=== PATIENT | female | born 2000 | race Caucasian/White ===

== ENCOUNTER 2018-06-28 19:29 | Observation (INO) | payer OTHER ==
[~2018-06-28] VITALS: Ht 167.6 cm; Wt 80.2 kg
--- NOTE | 2018-06-28 21:15 | ERD ---
ER Documentation Chief Complaint Chief Complaint C/O VAGINAL DISCHARGE X1 WEEK, 16 WEKS PREG, HX OF LABOR AT 18WEEKS HPI History of Present Illness: 18-year-old female with history of PCO S coming in today with complaint of vaginal discharge for 1 week. Patient describes discharge as watery without odor. Patient reports being approximately 16 weeks and a patient of Dr. Mccormick. Reports history of labor at 18 weeks and according to an ultrasound that was done today her cervix is open. At home pharmacological/nonpharmacological treatment for symptoms: --- Denies social concerns; Denies recent foreign travel ROS All systems reviewed and are negative except as per history of present illness. Medications Home Meds No Active Prescriptions or Reported Meds Allergies Allergies: Coded Allergies: Penicillins (Verified Allergy, Unknown, 06/28/18) PMhx/Soc History of Surgery: Yes (TA) Hx Miscellaneous Medical Probl: Yes (PCOS) Hx Alcohol Use: No Hx Substance Use: No Hx Tobacco Use: No Smoking Status: Never smoker FmHx Family History: diabetes; No coronary disease Physical Exam Vitals Vital Signs Date Temp Pulse Resp B/P (MAP) Pulse Ox O2 O2 Flow FiO2 Time Delivery Rate 06/28/18 98.1 97 20 130/71 100 Room Air 23:36 (90) 06/28/18 98.3 90 19 142/71 99 19:41 (94) Physical Exam Const: No acute distress Head: Atraumatic Eyes: Normal Conjunctiva ENT: Normal External Ears, Nose and Mouth. Neck: Full range of motion. No meningismus. Resp: Clear to auscultation bilaterally Cardio: Regular rate and rhythm, no murmurs Abd: Soft, non tender, non distended. Palpable fundus, normal bowel sounds. Skin: No petechiae or rashes Back: No midline or flank tenderness Ext: No cyanosis, or edema Neur: Awake and alert Psych: Normal Mood and Affect Result Diagram: 06/28/182140 Results 24 hrs Laboratory Tests Test 06/28/18 21:02 06/28/18 21:41 Urine Color YELLOW Urine Clarity CLEAR Urine pH 6.0 Urine Specific [place] 1.014 Urine Ketones NEGATIVE mg/dL Urine Nitrite NEGATIVE mg/dL Urine Bilirubin NEGATIVE mg/dL Urine Urobilinogen NEGATIVE mg/dL Urine Leukocyte Esterase NEGATIVE Annamarie/ul Urine Hemoglobin NEGATIVE mg/dL Urine Glucose 1+ mg/dL Urine Total Protein NEGATIVE mg/dl White Blood Count 9.2 10^3/ul Red Blood Count 4.02 10^6/ul Hemoglobin 11.9 g/dl Hematocrit 36.2 % Mean Corpuscular Volume 90.0 fl Mean Corpuscular Hemoglobin 29.6 pg Mean Corpuscular Hemoglobin Concent 32.9 g/dl Red Cell Distribution Width 12.8 % Platelet Count 257 10^3/UL Mean Platelet Volume 10.9 fl Immature Granulocytes % 0.400 % Neutrophils % 65.8 % Lymphocytes % 24.7 % Monocytes % 7.2 % Eosinophils % 1.6 % Basophils % 0.3 % Nucleated Red Blood Cells % 0.0 /100WBC Immature Granulocytes # 0.040 10^3/ul Neutrophils # 6.0 10^3/ul Lymphocytes # 2.3 10^3/ul Monocytes # 0.7 10^3/ul Eosinophils # 0.2 10^3/ul Basophils # 0.0 10^3/ul Nucleated Red Blood Cells # 0.0 10^3/ul Beta HCG, Quantitative 14267.0 mIU/ml Procedures/MDM ED course includes a thorough examination and history. Medications: -- Imaging: -- Labs: Urinalysis and urogenital wet mount ED course: Initial labs ordered while waiting for OB consultation. Patient with self swab using sterile Q-tip for urogenital wet mount. Consultation with Dr. Herrera; will order CBC and beta quantitative and OB transvaginal and abdominal ultrasound. Will consult with OB when results are back. Otherwise healthy patient with history of PCO S and labor and prior . Presenting with constellation of symptoms likely representing uterin e incompetent as characterized by history, physical exam findings, lab findings, imaging findings. Ultrasound impression showing: IMPRESSION: Single live intrauterine gestation of approximately 16 weeks and 0 days based on ultrasound measurements. Short cervix with evidence of funneling. .Waldemar Anand MD, Urinalysis negative for infection, positive glucose. Urogenital without any signs of trichomonas or clue cells. CBC: no e/o of systemic infection or severe anemia, H/H is 11.9/36 . Positive beta quantitative, 21k. No respiratory distress, otherwise relatively well appearing and nontoxic. Patient educated on diagnoses, prescriptions, follow-up care, return precautions. Strict return precautions given for worsening condition; questions answered discharge. Disposition for admission. Case discussed with the ED attending Dr. Grande. We will not do speculum exam based on ultrasound results per Dr. Grande. Consulted with on-call OB Dr. Herrera and states to admit patient to Dr. Hobbs on medical surge. Departure Diagnosis: Primary Impression: Incompetence of cervix Additional Impression: Clear vaginal discharge Condition: Fair KEN OWENS NP Jun 28, 2018 21:15
--- NOTE | 2018-06-29 00:34 | HP ---
Date/Time of Note Date/Time of Note DATE: 06/29/18 TIME: 00:24 OB - History Hx of Present Free Text/Dictation 18-year-old 2 para 0 at 16 weeks of gestation who presents with chief complaint of vaginal watery discharge for 1 week Patient is receiving her care with Dr. Mccormick and she was sent to the emergency department by him for possible evaluation for a cerclage Patient reports her prior was complicated by second trimester miscarriage at 18 weeks of gestation secondary to cervical incompetence which happened in [place] Patient reports that she recently moved from [place] to [facility] and started her care at 14 weeks of gestation She denies any past medical history Past surgical history noncontributory to this admission Patient denies smoking or any substance abuse : 2 Para: 0 Care: Limited Care Past Family/Social History * Past Medical, Surgical, Family and Obstetric Histories reviewed from chart. OB Admission Exam Vital Signs Vital Signs Vital Signs Date Temp Pulse Resp B/P (MAP) Pulse Ox O2 O2 Flow FiO2 Time Delivery Rate 06/28/18 98.1 97 20 130/71 100 Room Air 23:36 (90) Physical Exam HEENT: WNL Heart: Rhythm Normal Lungs: Clear, Equal Abdomen: WNL Extremities: Normal Reflexes: Normal Last 72 hours Lab Results CBC & BMP 06/28/18 21:41 Urine Results - 72 Hrs Test 06/28/18 21:02 Urine Color YELLOW (YELLOW) Urine Clarity CLEAR (CLEAR) Urine pH 6.0 (5.0-9.0) Urine Specific [place] 1.014 (1.003-1.030) Urine Ketones NEGATIVE mg/dL (NEGATIVE) Urine Nitrite NEGATIVE mg/dL (NEGATIVE) Urine Bilirubin NEGATIVE mg/dL (NEGATIVE) Urine Urobilinogen NEGATIVE mg/dL (NEGATIVE) Urine Leukocyte Esterase NEGATIVE Annamarie/ul Urine Hemoglobin NEGATIVE mg/dL (NEGATIVE) Urine Glucose 1+ mg/dL (NEGATIVE) H Urine Total Protein NEGATIVE mg/dl (NEGATIVE) Microbiology WET MOUNT Final POLYMORPH. LEUKOCYTE RARE BACTERIA 1+ EPITHELIAL CELLS 2+ YEAST NONE SEEN CLUE CELLS NO CLUE CELLS SEEN MOTILE TRICHOMONAS NO MOTILE TRICHOMONAS SEEN PROCEDURE: US OB AND ULTRASOUND CERVIX. CLINICAL INDICATION: Size and dates , pelvic pain TECHNIQUE: Multiple sonographic images of the pelvis and gravid uterus were obtained. The images were reviewed on a PACS workstation. COMPARISON: No prior studies are available for comparison. FINDINGS: Cervix: Length: 1.1 cm. Evidence of funneling. Gestation: Single live intrauterine gestation. Cardiac activity: 152 beats per minute. Presentation: Breech Placenta: Location: Anterior. Appearance: No previa or abruption. MVP = 3.4 cm Measurements: BPD = 3.1 cm, 15 weeks and 5 days HC = 11.8 cm, 15 weeks and 6 days AC = 11.3 cm, 17 weeks and 0 days FL = 1.9 cm, 15 weeks and 4 days Gestational Age: AUA estimated gestational age: 16 weeks 0 days LMP estimated gestational age: 16 weeks 0 days AUA estimated date of delivery: 12/13/18 The EFW = 150 g, 58.5%ile based on LMP age. The ovaries are normal in echogenicity. The right ovary measures 5.3 x 2.6 x 2.8 cm. The left ovary measures 3.7 x 2.4 x 3.2 cm. There is normal Doppler flow in the ovaries. RPTAT: AA IMPRESSION: Single live intrauterine gestation of approximately 16 weeks and 0 days based on ultrasound measurements. Short cervix with evidence of funneling. .Waldemar Anand MD, MD Date Time Electronically viewed and signed by .Waldemar Anand MD, MD on 06/28/2018 22:08 .S/ CC: KEN OWENS NP [phone] OB Assessment/Plan Reason for admission: other (Cervical incompetence/short cervix 1.1 cm with funneling ) Other plan: 2 para 0 at 16 weeks of gestation with short cervix with evidence of funneling/cervical incompetence Admit to [facility] We will obtain a consultation from perinatologist regarding consideration for a cerclage Copies To: CC: BRITTANY STREETER MD ; CINTHIA EUBANKS MD Jun 29, 2018 00:34
[2018-06-29 00:55] VITALS: BP 140/79; PULSE 86; RESP 18
[2018-06-29 01:30] VITALS: BP 130/62; PULSE 82; RESP 16
[2018-06-29] MEDS ORDERED: ACETAMINOPHEN 325 MG TAB PO PRN ×2 (02:00)
[2018-06-29] MEDS ORDERED: ONDANSETRON 4 MG INJ IV PRN ×2 (02:00)
[2018-06-29] MEDS: LACTATED RINGER'S 1,000 ML IV SCH ×2 (02:21→10:57)
[2018-06-29 02:31] VITALS: Ht 167.6 cm; Wt 80.2 kg
[2018-06-29 07:33] VITALS: BP 115/58; PULSE 76; RESP 18
[2018-06-29 16:03] VITALS: BP 118/69; PULSE 90; RESP 18
--- NOTE | 2018-06-29 16:14 | PD.PPDC ---
PERFORMING ARTIST Discharge Instruction Diagnosis [id number] Final Diagnosis: [id number] cervical incompetence at 16weeks with short cervix and funneling Condition [id number] Patient Condition: [id number] Guarded Diet Special Diet: nothing per mouth until she goes to [facility] directly from here Activity/Restrictions [id number] Activity: [id number] Bedrest [id number] Restrictions: [id number] No Exercising No Lifting No Driving Minimize Walking Minimize Stair-climbing No Sexual Activity Nothing in the Vagina No [place] No Tampmary marquez MEE SOOK MD Jun 29, 2018 16:14
--- NOTE | 2018-06-29 16:25 | DS ---
Date/Time of Note Date/Time of Note DATE: 06/29/18 TIME: 16:18 Obstetrical Discharge Record Final Diagnosis Final Diagnosis: not delivered Other Final Diagnosis cervical incompetence at 16weeks with short cervix with funneling Complications Augmentation: No Induction: No Rupture of Membranes: No Condition on Discharge Physical Assessment Last Vitals: this patient was sent by her OB to ER for cervical cerclage at 16weeks GA u/s done 06/28/18 revealed CVL 1.1cm with funneling consult to M since there is high risk of rupturing membrane. who [place] [facility] [place] explained the situation ,patient agree to [facility] without eating since possibility of getting the cerclage today Calf Tenderness: No Patient Condition: Stable NEEMA GARZA MD Jun 29, 2018 16:25
[2018-06-29] MEDS ORDERED: PROGESTERONE 100 MG CAP VAG SCH (21:00)
== END 2018-06-29 17:40 | disposition home or self-care (01) ==
LOC: FTE 19:29 → 2NE 23:54
PROVIDERS: ADMIT Obstetrics & Gynecology; ATTEND Obstetrics & Gynecology
DX: O60.02 Preterm labor without delivery, second trimester (principal); O34.32 Maternal care for cervical incompetence, second trimester; O26.872 Cervical shortening, second trimester; Z3A.16 16 weeks gestation of pregnancy
CPT/HCPCS: 76801; 81003; 84702; 85025; 87086; 87210; J7120; Z7500; G0378